=== PATIENT | female | born 1965 | race Caucasian/White ===

== ENCOUNTER 2016-09-23 22:46 | Emergency (ER) | payer MEDICARE, OTHER | END 2016-09-24 02:40 | disposition home or self-care (01) | LOC: ER 22:46 | DX: N30.00 Acute cystitis without hematuria (principal); Z79.899 Other long term (current) drug therapy; Z88.8 Allergy status to other drugs, medicaments and biological substances | CPT/HCPCS: 36415 ==

== ENCOUNTER → 2016-09-25 | Day surgery (SDC) | payer MEDICARE, OTHER | END | disposition home or self-care (01) | LOC: SDC 12:25 | DX: N30.00 Acute cystitis without hematuria (principal); N30.20 Other chronic cystitis without hematuria; N31.9 Neuromuscular dysfunction of bladder, unspecified; R33.9 Retention of urine, unspecified; N32.89 Other specified disorders of bladder; N21.0 Calculus in bladder | CPT/HCPCS: C1758; J2704 ==

== ENCOUNTER 2016-10-28 15:31 | Emergency (ER) | payer MEDICARE, OTHER | END 2016-10-28 21:44 | disposition home or self-care (01) | LOC: ER 15:31 | DX: T83.098A Other mechanical complication of other urinary catheter, initial encounter (principal); Z79.899 Other long term (current) drug therapy; Z88.8 Allergy status to other drugs, medicaments and biological substances ==

== ENCOUNTER 2016-11-26 12:02 | Emergency (ER) | payer MEDICARE, OTHER | END 2016-11-26 12:40 | disposition home or self-care (01) | LOC: ER 12:02 | DX: T83.098A Other mechanical complication of other urinary catheter, initial encounter (principal); Z79.899 Other long term (current) drug therapy; Z88.8 Allergy status to other drugs, medicaments and biological substances ==

== ENCOUNTER 2016-12-14 12:57 | Emergency (ER) | payer MEDICARE, OTHER | END 2016-12-14 14:17 | disposition home or self-care (01) | LOC: ER 12:57 | DX: N39.0 Urinary tract infection, site not specified (principal); Z46.6 Encounter for fitting and adjustment of urinary device; H26.9 Unspecified cataract; Z79.899 Other long term (current) drug therapy; Z88.5 Allergy status to narcotic agent; Z88.8 Allergy status to other drugs, medicaments and biological substances ==